=== PATIENT | male | born 1940 | race Caucasian/White ===

== ENCOUNTER 2020-10-06 13:29 | Inpatient (IN) | payer OTHER ==
[~2020-10-06] VITALS: Ht 172.7 cm; Wt 85.6 kg
[2020-10-06] MEDS ORDERED: LOPRESSOR50 MG PO (16:27)
[2020-10-06] MEDS ORDERED: CRESTOR40 MG PO (16:28)
[2020-10-06] MEDS ORDERED: TYLENOL EXTRA500 MG PO (16:30)
[2020-10-06] MEDS ORDERED: NORVASC 2.5 MG2.5 M1 PO (16:32)
[2020-10-06] MEDS ORDERED: VITAMIN C500 M2 PO (16:33)
[2020-10-06] MEDS ORDERED: VITAMIN D31250 MC1 PO (16:34)
[2020-10-06] MEDS ORDERED: VITAMIN B-121000 MC2 PO (16:35)
[2020-10-06] MEDS ORDERED: FERROUS GLUCON324 M2 PO (16:36)
[2020-10-06] MEDS ORDERED: FLONASE 0.05%50 MCG NARES (16:38)
[2020-10-06] MEDS ORDERED: CENTRUM SILVER1 EAC5 PO (16:39)
[2020-10-06] MEDS ORDERED: MUCINEX600 MG PO (16:41)
[2020-10-06] MEDS ORDERED: COMBIVENT RESPIM4 GM INH (16:43)
[2020-10-06] MEDS ORDERED: MECLIZINE HCL25 M1 PO (16:44)
[2020-10-06] MEDS ORDERED: METHOCARBAMOL750 MG PO (16:45)
[2020-10-06] MEDS ORDERED: ICY HOT CREAM35.4 GM TOP (16:47)
[2020-10-06] MEDS ORDERED: NITROSTAT0.4 M1 SUBLING (16:48)
[2020-10-06] MEDS ORDERED: POTASSIUM PO (16:50)
[2020-10-06] MEDS ORDERED: GAS-X125 M1 PO (16:51)
[2020-10-06] MEDS ORDERED: FLOMAX0.4 MG PO (16:52)
[2020-10-07 05:08] LABS: HEMOGLOBIN 8.8 gm/dL (14.0-18.0); MCH 34.9 pg (26.0-34.0); MCHC 33.8 g/dL (28.0-37.0); MCV 103.2 fL (80.0-100.0); MPV 8.5 fl. (7.2-11.1); RBC 2.52 mil/uL (4.50-6.00)
[2020-10-07 05:20] LABS: CREATININE 1.4 mg/dL (0.6-1.3); POTASSIUM 4.4 mmol/L (3.5-5.1)
[2020-10-07 05:35] LABS: WBC 1.9 thou/uL (4.0-11.0)
[2020-10-07 09:30] VITALS: BP 151/61
--- NOTE | 2020-10-07 17:50 | NUR ---
ALERT AND ORIENTED X4. UP WITH 2 ASSIST, GAIT AND WALKER DUE TO UNSTEADINESS ON FEET BECAUSE OF DIZZINESS. HAD N/V WHILE WORKING WITH THERAPY THIS AM. MEDICATION GIVEN WITH LITTLE RELIEF THIS AM. PATIENT ABLE TO KEEP NAUSEA MEDICATION DOWN THIS AFTERNOON AND PATIENT STATED HE IS FEELING BETTER. GIVEN PO PAIN MEDICATION THIS AM FOR HEADACHE. DR NOTIFIED OF LOW WBC. WILL FOLLOW NEUTOPENIC PRECAUTIONS. USES CALL LIGHT FOR ASSIST. FALL PRECAUTIONS IN PLACE. BED ALARM AND CHAIR ALARM USED.
[2020-10-07 20:00] VITALS: BP 139/49
[2020-10-08 08:00] VITALS: BP 126/45
[2020-10-08 09:47] LABS: HEMATOCRIT 26.6 % (42.0-52.0); MCH 35.4 pg (26.0-34.0); MPV 8.4 fl. (7.2-11.1); RBC 2.56 mil/uL (4.50-6.00); RDW-CV 15.9 % (10.5-14.5)
[2020-10-08 09:50] LABS: WBC 1.9 thou/uL (4.0-11.0)
--- NOTE | 2020-10-08 12:10 | NUR ---
Nutrition Pt admitted to rehab with CVA. Regular diet ordered. Wts: 186# at admit, now bed wt is 199# - PLEASE REWEIGH. Meds: vit C, B12, Fe, MVI. H/o COPD, HTN, CAD, AAA. Will follow weekly wts, labs, po intake. Neutropenic precautions. Consider mild risk at this time.
--- NOTE | 2020-10-08 16:31 | NUR ---
ASSUMMED CARE OF PT AT 0730, PT ALERT AND ORIENTED, FATIGUED, TRANSFERS WITH ASSIST OF 2, GB, REFUSES TO USE WALKER, DENIED NEED FOR ORAL PAIN MEDICATIONS THIS SHIFT, MEDICATED THIS AM FOR DIZZINESS AND NAUSEA, SMALL EMESIS AND STATED FEELING BETTER, BUT DAY PROGRESSED DID HAVE 2 LARGE EMESIS AFTER ACTIVITY WITH THERAPIES, MEDICATED AGAIN THIS PM FOR NAUSEA, WBC 1.9 CRITICAL VALUE CALLED TO DR GÓMEZ, ORDERS RECEIVED, PT VOIDS PER URINAL, NO BM THIS SHIFT, DOES TAKE SOME FOOD AND FLUIDS ENCOURAGED, PARTICIPATED IN ALL THERAPIES, HOURLY ROUNDING COMPLETED, ASSESSMENT COMPLETE, WILL CONTINUE TO MONITOR.
[2020-10-08 19:45] VITALS: BP 142/57
--- NOTE | 2020-10-08 22:57 | NUR ---
ASSUMED CARE AT 1930. PATIENT RESTING IN RECLINER UNTIL AROUND 2099. SPILLED URINAL AND CLOTHING CHANGED, TO BSC, SKIN CARE DONE. NO BM PER BSC. UP WITH TWO FOR SAFETY, GAIT BELT, WALKER, CUEING. TAKES PILLS WITH WATER. GIVEN MECLIZINE AT HS. NO FURTHER C/O NAUSEA. VOIDED PER URINAL. GIVEN APAP AT HS. HOURLY ROUNDS CONTINUE. BED ALARM ON. CALL LITE IN REACH.
--- NOTE | 2020-10-09 05:08 | NUR ---
SLEPT MOST OF THE NIGHT. VOIDED PER URINAL, NURSING EMPTIED. NO C/O PAIN. HOURLY ROUNDS CONTINUE. BED ALARM ON. CALL LITE IN REACH.
[2020-10-09 08:00] VITALS: BP 117/52
--- NOTE | 2020-10-09 15:39 | NUR ---
ASSUMMED CARE OF PT AT 0730, PT ALERT AND ORIENTED, PT TRANSFERS WITH ASSIST OF 1-2 DUE TO DIZZINESS. TAKING FOOD AND FLUIDS WELL AND HAS NO NAUSEA UNTIL HE MOVES AND THEN DEVELOPS SUDDEN NAUSEA AND HAS EMESIS, MEDICATED WITH MECLIZINE AND ZOFRAN PER ORDER, MEDICATED FOR HEADACHE PER ORDER, PT HAS NOT HAD BM FOR SEVERAL DAYS, MILK OF MAGNESIA GIVEN, PARTICIPATED IN ALL THERAPIES, HOURLY ROUNDING COMPLETED, ASSESSMENT COMPLETE, WILL CONTINUE TO MONITOR.
[2020-10-09 19:55] VITALS: BP 153/57
[2020-10-10 09:00] VITALS: BP 130/52
--- NOTE | 2020-10-10 16:00 | NUR ---
INITIAL ASSESSMENT: PATIENT ADMITTED TO THE ACUTE IN REHAB UNIT ON 10/06/20 WITH A DIAGNOSIS OF CVA. PT ALERT AND ORIENTED. PT INDEPENDENT WITH ADL'S PRIOR TO ADMIT, ACTIVE AND ABLE TO DRIVE. PT RESIDES AT HOME WITH SPOUSE. PT OWNS 0 DME. PT HAS 0 HX OF HH OR SNF. CM ORIENTED PT TO THE REHAB UNIT AND PROCESSES, TEAM CONFRENCE MEETING, RESIDENT'S RIGHTS INFO, AND TO THE ROLE OF CM. CM WILL REMAIN AVAILABLE TO ASSIST AND FOLLOW NEEDED.
--- NOTE | 2020-10-10 16:55 | NUR ---
UP WITH 1 ASSIST, GAIT BELT AND WALKER THIS AM. UNSTEADY AND DIZZY WHEN UP ON FEET. MEDICATION GIVEN FOR C/O N/V. THIS AM WITH ONLY SOME RELIEF. TALKED WITH MEDICAL DR ABOUT CT SCAN REPORT FROM 10/07. PATIENT PLACED ON BEDREST UNTIL SEEM BY NEUROLOGIST. NEUROLOGIST CONSULTED AND HERE TO SEE PATIENT. NEW ORDERS NOTED. CONTINENT OF BOWEL AND BLADDER. ALERT AND ORIENTED X4. USES CALL LIGHT FOR ASSIST. FALL PRECAUTIONS IN PLACE, BED ALARM AND CHAIR ALARM USED.
[2020-10-10 20:00] VITALS: BP 147/45
[2020-10-11 09:30] VITALS: BP 140/53
--- NOTE | 2020-10-11 17:19 | NUR ---
ALERT AND ORIENTED X4. ON BEDREST TODAY UNTIL CT SCAN DONE. CT RESULTS CALLED TO NEUROLOGIST. PATIENT ABLE TO BE OFF BEDREST AND RESUME THERAPIES IN AM. NO C/O PAIN, NAUSEA OR DIZZINESS TODAY. UP TO BEDSIDE COMMODE WITH 1 ASSIST, GAIT BELT AND WALKER. USES CALL LIGHT FOR ASSIST. FALL PRECAUTIONS IN PLACE.
[2020-10-11 20:00] VITALS: BP 112/50
--- NOTE | 2020-10-12 07:00 | NUR ---
ASSUMED PT CARE AT 1930. ASSESSMENT COMPLETED CHARTED. ABLE TO MAKE NEEDS KNOWN. UP WITH 1 ASSIST TO BATHROOM BUT DID NOT GET UP, JUST USED URINAL NEEDED. RESTING IN BED THROUGHOUT THE NIGHT. C/O HEADACHE AND GAVE PRN PAIN MEDICATION. WILL CONTINUE TO MONITOR.
[2020-10-12 09:30] VITALS: BP 138/49
--- NOTE | 2020-10-12 16:12 | NUR ---
ALERT AND ORIENTED X4. UP WITH 1 ASSIST, GAIT BELT AND WALKER. HEADACHE, NAUSEA AND DIZZINESS PATIENT STATED IS DOING BETTER. DENIED NEED FOR PAIN MEDICATION. DR AND WOUND NURSE NOTIFIED ABOUT LESION ON LEFT BUTTOCK. CONTINENT OF BOWEL AND BLADDER. USES CALL LIGHT. FALL PRECAUTIONS IN PLACE. BED ALARM AND CHAIR ALARM USED.
[2020-10-12 19:00] VITALS: BP 148/46
--- NOTE | 2020-10-13 00:28 | NUR ---
ASSUMED CARE AT 1930. PATIENT RESTING IN BED WATCHING FOOTBALL GAME ON TV. TAKES PILLS WHOLE WITH WATER. TURNS SELF. VOIDS PER URINAL AT [facility]. NO C/O HEADACHE OR DIZZINESS. SCOPOLOMINE PATCH REMAINS TO EAR. HOURLY ROUNDS CONTINUE. BED ALARM ON. CALL LITE IN REACH.
--- NOTE | 2020-10-13 05:31 | NUR ---
SLEPT MOST OF THE NIGHT. VOIDS PER URINAL. TURNS SELF. NO C/O PAIN. HOURLY ROUNDS CONTINUE. BED ALARM ON. CALL LITE IN REACH.
[2020-10-13 08:00] VITALS: BP 151/51
--- NOTE | 2020-10-13 15:47 | NUR ---
PT AND , LUCILLE DENIES HAVING ANY QUESTIONS FOR TEAM MEET'G. LUCILLE STATED SHE WILL"PROB BE THERE TOMORROW."
--- NOTE | 2020-10-13 18:40 | NUR ---
AM ASSESSMENT AND VITAL SIGNS COMPLETED DOCUMENTED. PT HAD INTERMITTENT NAUSEA AND VOMITING TODAY WHICH LIMITED HIS ABILITY TO PARTICIPATE WITH THERAPIES. CT OF ABD AND PELVIS DONE, NO ACUTE FINDINGS. FALL PRECAUTIONS AND HOURLY ROUNDING CONTINUE.
[2020-10-13 19:00] VITALS: BP 161/68
--- NOTE | 2020-10-13 20:05 | NUR ---
IN BED WATCHING TV. DENIES DISCOMFORT. CALL LIGHT WITHIN REACH. IN GOOD SPIRITS.
--- NOTE | 2020-10-14 05:24 | NUR ---
RESTED QUIETLY. USED URINAL X ONE DURING THE NIGHT. HOURLY ROUNDING IN PROGRESS.
[2020-10-14 08:52] VITALS: BP 104/48
[2020-10-14 13:09] LABS: ALBUMIN 3.7 g/dL (3.4-5.0); CALCIUM 9.6 mg/dL (8.5-10.1); CREATININE 1.5 mg/dL (0.6-1.3); POTASSIUM 4.4 mmol/L (3.5-5.1); TOTAL BILIRUBIN 0.8 mg/dL (<0.1-1.0); TOTAL PROTEIN 7.2 g/dL (6.4-8.2)
--- NOTE | 2020-10-14 16:08 | NUR ---
PT WITH N/V. PRN ZOFRAN GIVEN. WORKED WITH THERAPIES. UP WITH STB ASSIST, GAIT BELT, AND WALKER. DENIES PAIN.
--- NOTE | 2020-10-14 17:27 | NUR ---
TEAM CONFRENCE MEETING HELD TODAY. PT AND SPOUSE INFORMED OF MEETING AND PLAN TO RE-TEAM PT AND HAVE THE PT REMAIN ON THE UNIT FOR ANOTHER WEEK. PT AND SPOUSE IN AGREEMENT WITH PLAN. CM WILL REMAIN AVAILABLE TO ASSIST AND FOLLOW NEEDED.
[2020-10-14 19:00] VITALS: BP 135/52
--- NOTE | 2020-10-14 20:20 | NUR ---
AWAKENED FOR REASSESSMENT AND MEDICATION PASS. DENIES DISCOMFORT. VOIDED YEFRI URINE PER URINAL. CALL LIGHT WITHIN REACH.
--- NOTE | 2020-10-15 05:31 | NUR ---
RESTED QUIETLY. USED URINAL DURING THE NIGHT. HOURLY ROUNDING IN PROGRESS.
[2020-10-15 05:50] LABS: CALCIUM 8.9 mg/dL (8.5-10.1); CREATININE 1.4 mg/dL (0.6-1.3); POTASSIUM 4.5 mmol/L (3.5-5.1)
[2020-10-15 10:04] VITALS: BP 129/52
--- NOTE | 2020-10-15 20:00 | NUR ---
RESTING IN BED AND TALKING ON THE PHONE. DENIES DISCOMFORT. TWO URINALS AND CALL LIGHT WITHIN REACH.
[2020-10-15 20:16] VITALS: BP 125/56
--- NOTE | 2020-10-16 05:02 | NUR ---
RESTED QUIETLY. USED URINAL DURING THE NIGHT. HOURLY ROUNDING IN PROGRESS.
[2020-10-16 09:12] VITALS: BP 123/42
[2020-10-16 12:25] LABS: HEMATOCRIT 30.9 % (42.0-52.0); HEMOGLOBIN 10.3 gm/dL (14.0-18.0); MCH 34.8 pg (26.0-34.0); MCHC 33.5 g/dL (28.0-37.0); MCV 104.1 fL (80.0-100.0); MPV 8.5 fl. (7.2-11.1); RBC 2.97 mil/uL (4.50-6.00); RDW-CV 15.6 % (10.5-14.5); WBC 2.4 thou/uL (4.0-11.0)
[2020-10-16 12:35] LABS: CALCIUM 9.2 mg/dL (8.5-10.1); CREATININE 1.7 mg/dL (0.6-1.3); POTASSIUM 4.6 mmol/L (3.5-5.1)
--- NOTE | 2020-10-16 17:01 | NUR ---
ALERT AND ORIENTED X4. HAD N/V THIS AM. NEW ORDER NOTED FOR INCREASE MEDICATION FOR NAUSEA. PAIN MEDICATION GIVEN FOR HEADACHE WITH SOME RELIEF. CONTINENT OF BOWEL AND BLADDER. USES CALL LIGHT FOR ASSIST. FALL PRECAUTIONS IN PLACE. BED ALARM AND CHAIR ALARM USED.
[2020-10-16 20:00] VITALS: BP 130/44
[2020-10-17 04:54] LABS: CALCIUM 9.2 mg/dL (8.5-10.1); CREATININE 1.7 mg/dL (0.6-1.3); POTASSIUM 4.8 mmol/L (3.5-5.1)
--- NOTE | 2020-10-17 06:51 | NUR ---
ASSUMED PT CARE AT 1930. ASSESSMENT COMPLETED CHARTED. ABLE TO MAKE NEED KNOWN. NO C/O PAIN OR DISCOMFORT. RESTING IN BED MOST OF THE NIGHT. SLIGHT C/O NAUSEA. WILL CONTINUE TO MONITOR.
[2020-10-17 07:30] VITALS: BP 125/52
--- NOTE | 2020-10-17 19:40 | NUR ---
AWAKENED FOR REASSESSMENT. CALL LIGHT WITHIN REACH. VOIDS YEFRI URINE PER URINAL. TWO URINALS WITHIN REACH. DENIES DISCOMFORT.
[2020-10-17 19:52] VITALS: BP 127/43
[2020-10-18 04:59] LABS: HEMATOCRIT 28.9 % (42.0-52.0); MCH 35.3 pg (26.0-34.0); MCHC 34.6 g/dL (28.0-37.0); MCV 101.9 fL (80.0-100.0); MPV 8.6 fl. (7.2-11.1); RBC 2.84 mil/uL (4.50-6.00); RDW-CV 15.4 % (10.5-14.5); WBC 2.8 thou/uL (4.0-11.0)
[2020-10-18 05:17] LABS: ALBUMIN 3.3 g/dL (3.4-5.0); CREATININE 1.6 mg/dL (0.6-1.3); MAGNESIUM 1.8 mg/dL (1.8-2.4); POTASSIUM 4.3 mmol/L (3.5-5.1); TOTAL BILIRUBIN 0.6 mg/dL (<0.1-1.0); TOTAL PROTEIN 6.8 g/dL (6.4-8.2)
--- NOTE | 2020-10-18 05:25 | NUR ---
RESTED QUIETLY. USED URINAL DURING THE NIGHT. NO NAUSEA/VOMITING. HOURLY ROUNDING IN PROGRESS.
[2020-10-18 08:00] VITALS: BP 98/55
--- NOTE | 2020-10-18 17:12 | NUR ---
ASSUMMED CARE OF PT AT 0730, PT ALERT AND ORIENTED, TRANSFERS WITH ASSIST OF 1, GB WALKER, C/O DIZZINESS, MEDICATED X 1 WITH MECLIZINE, PT HAD ANUSEA/EMESIS X 3 AFTER WORKING WITH THERAPIES, ZOPAMELA GIVNE PER ORDER, TAKING FOOD AND FLUIDS WELL,VOIDS PER URINAL, BP LOW THIS AM, METROPOLOL HELD, INFORMED PHYSICIAN, DENIES HEADACHE THIS SHIFT, PARTICIPATED IN ALL THERAPIES, HOURLY ROUNDING COMPLETED, ASSESSMENT COMPLETE, WILL CONTINUE TO MONITOR.
--- NOTE | 2020-10-18 20:05 | NUR ---
PATIENT HAD A SMALL BM ON THE TOILET BUT FELT LIKE HE NEEDED TO HAVE MORE. ACCEPTED OFFER OF A PRN COLACE. AMBULATES WITH STANDBY, GAITBELT, WALKER. DENIES PAIN. TWO URINALS WITHIN REACH. CALL LIGHT WITHIN REACH.
[2020-10-18 20:19] VITALS: BP 127/51
[2020-10-19 05:25] LABS: CALCIUM 9.7 mg/dL (8.5-10.1); CREATININE 1.7 mg/dL (0.6-1.3); POTASSIUM 4.4 mmol/L (3.5-5.1)
--- NOTE | 2020-10-19 05:38 | NUR ---
RESTED QUIETLY WITH 02 NASAL CANNULA AT TWO LITERS. PATIENT OXYGEN SATURATION HAS BEEN DROPPING AT NIGHT TO 85-87% WITHOUT THE OXYGEN. USED URINAL DURING THE NIGHT X 2. HOURLY ROUNDING IN PROGRESS.
[2020-10-19 08:00] VITALS: BP 122/45
--- NOTE | 2020-10-19 16:25 | NUR ---
ASSUMMED CARE OF PT AT 0730, PT ALERT AND ORIENTED, PT TRANSFERS WITH ASSIST OF 1, GB WALKER FROM BED TO CHAIR, PT C./O NAUSEA AND HAD EMESIS X3 THIS SHIFT, TO HAVE UGI, AND SBFT IN AM AT 0830, PT NEEDS TO BE NPO AFTER MIDNIGHT, PT AND INSTRUCTED ON PROCEDURE, O2 REMOVED AT BREAKFAST, O2 SAT 94% ON RA, PT C/O HEADACHE THIS AM, MEDICATED PER ORDER, PARTICIPATED IN ALL THERAPIES, HOURLY ROUNDING COMPLETED, WILL CONTINUE TO MONITOR.
[2020-10-19 19:00] VITALS: BP 137/47
--- NOTE | 2020-10-19 20:35 | NUR ---
RESTING QUIETLY IN BED AND LAYING ON HIS SIDE. JUST HAD HIS BREATHING TREATMENT. EARLIER WAS SITTING UP ON SIDE OF THE BED VOMITING PARTIALLY DIGESTED FOOD. PLACED OXYGEN NASAL CANNULA AT TWO LITERS. PATIENT DESATS AT NIGHT. TWO URINALS WITHIN REACH. CALL LIGHT WITHIN REACH.
--- NOTE | 2020-10-20 05:09 | NUR ---
RESTED QUIETLY. USED URINAL DURING THE NIGHT. NPO FOR UGI AND SBFT TODAY. PATIENT IS TO BE DISCHARGED FROM REHAB BEFORE LEAVING FOR PROCEDURE. NO MORE EPISODES OF VOMITING. HOURLY ROUNDING IN PROGRESS.
[2020-10-20 09:00] VITALS: BP 107/39
--- NOTE | 2020-10-20 14:21 | CON ---
[address] [address] CONSULTATION Name: CHEIKH MONAE Room: [address] ADM IN M.R.#: [id number] Admission: 10/06/20 Attend Phys: Kahlil Ca MD Discharge: Date of : 36 Report #: [id number] THIS REPORT FOR: //name// cc: FAM - Family physician unknown FAM - Family physician unknown ~ DATE OF SERVICE: 10/15/2020 HISTORY OF PRESENT ILLNESS: This is a pleasant 80-year-old gentleman with past medical history significant for hypertension, hyperlipidemia, coronary artery disease, COPD, peripheral vascular disease and myelodysplastic syndrome, who presented to outside hospital on 09/30/2020 with dizziness and headache. The patient was noted to have small intracerebellar hemorrhage and was transferred to for Neurosurgery. Conservative management was recommended and since he had stable hemorrhage, the patient has been transferred here. The GI service has now been consulted for management of his nausea. The patient reports dizziness and vertigo since the hemorrhage. The patient reports significant nausea every day. Denies any vomiting, denies any hematemesis or hematochezia. PAST MEDICAL HISTORY: As mentioned above, he has history of hypertension, hyperlipidemia, coronary artery disease, peripheral vascular disease, abdominal aortic aneurysm and myelodysplastic syndrome. PAST SURGICAL HISTORY: The patient has an aortobiiliac stent placed. PHYSICAL EXAMINATION: VITAL SIGNS: Temperature 36.7, pulse rate 76, respirations 17, blood pressure 129/52, pulse ox 91%. GENERAL: The patient is alert, awake, oriented x 3. HEENT: Mucous membranes are moist. There is no congestion. LUNGS: Clear to auscultation bilaterally. ABDOMEN: Soft, tympanic. Bowel sounds are present. No guarding or rigidity. EXTREMITIES: Warm, well perfused. LABORATORY DATA: Hemoglobin 9.0, hematocrit 26.6, platelet count 203, WBC count 1.9. Sodium 137, potassium 4.5, chloride 104, bicarbonate 26, BUN 31, creatinine 1.4. CT abdomen and pelvis does not show any evidence of bowel obstruction. ASSESSMENT AND PLAN: Pleasant 80-year-old gentleman with history of cerebrovascular accident with intracerebellar hemorrhage, was presenting for evaluation of nausea. I suspect his nausea is related to his intracerebellar [place] [address] CONSULTATION Name: CHEIKH MONAE Room: [address] IN [facility].#: [id number] Admission: 10/06/20 Attend Phys: Kahlil Ca MD Discharge: Date of : 38 Report #: [id number] evidence of bowel obstruction. The patient reports significant improvement in his nausea since the morning. I would continue current regimen. If his nausea worsens, we can escalate Zofran to 8 mg every 8 hours. Thank you for this consultation. <ELECTRONICALLY SIGNED> By: Jarvis Fontana MD 10/20/20 1421 1139 [id number] cata Garcia
[2020-10-20] MEDS ORDERED: ZOFRAN ODT4 MG PO (14:23)
[2020-10-20] MEDS ORDERED: NEXIUM40 MG PO (14:23)
[2020-10-20] MEDS ORDERED: METOPROLOL TART25 MG PO (14:23)
--- NOTE | 2020-10-20 16:01 | NUR ---
CM SPOKE TO THE PT AND HIS SPOUSE TO DISCUSS ANY QUESTIONS OR CONCERNS THAT THEY MAY HAVE FOR TOMORROWS TEAM CONFRENCE MEETING. PT AND SPOUSE HAVE NO QUESTIONS OR CONCERNS AT THIS TIME. PLAN IS FOR PT TO D/C TO ACUTE TOMORROW TO HAVE GI PROCEDURE. CM WILL REMAIN AVAILABLE TO ASSIST AND FOLLOW NEEDED.
[2020-10-20 19:15] VITALS: BP 161/69
--- NOTE | 2020-10-20 19:51 | NUR ---
ALERT AND ORIENTED X4. UP WITH 1 ASSIST, GAIT BELT AND WALKER. PO PAIN MEDICATION GIVEN FOR HEADACHE WITH SOME RELIEF. NAUSEA MEDICATION GIVEN SCHEDULED WITH SOME RELIEF. PROCEDURE CHANGED TO 10/21 FOR UPPER GI AND SBFT. USES CALL LIGHT FOR ASSIST. FALL PRECAUTIONS IN PLACE. BED ALARM AND CHAIR ALARM USED.
--- NOTE | 2020-10-20 20:20 | NUR ---
CAME ON SHIFT AND PT WAS COMPLAINING OF CHEST PAIN RIGHT UNDER LEFT BREAST AND STATED THERE WAS A "LUMP" THERE. IMMEDIATELY GOT VITAL SIGNS, VSS EXCEPT FOR BP ELEVATED. NOTIFIED DR. EKG WAS NORMAL. DR GAVE ORDERS FOR CHEST XRAY WHICH ALSO CAME BACK NORMAL. PAIN WENT AWAY ABOUT 15 MINS AFTER FIRST SHOWING. NO NEW ORDERS GIVEN AFTER. WILL CONTINUE TO MONITOR.
[2020-10-21 01:50] VITALS: BP 161/69
[2020-10-21 05:43] LABS: HEMATOCRIT 27.1 % (42.0-52.0); HEMOGLOBIN 9.3 gm/dL (14.0-18.0); MCH 35.4 pg (26.0-34.0); MCHC 34.3 g/dL (28.0-37.0); MCV 103.2 fL (80.0-100.0); MPV 8.2 fl. (7.2-11.1); NUCLEATED RBCS 0 /100WBC; PLATELET COUNT* 89 thou/uL (150-400); RBC 2.63 mil/uL (4.50-6.00); RDW-CV 15.7 % (10.5-14.5); WBC 2.3 thou/uL (4.0-11.0)
[2020-10-21 05:50] LABS: CALCIUM 9.3 mg/dL (8.5-10.1); CREATININE 1.5 mg/dL (0.6-1.3); POTASSIUM 4.1 mmol/L (3.5-5.1)
--- NOTE | 2020-10-21 06:08 | NUR ---
ASSUMED PT CARE AT 1930. ASSESSMENT COMPLETED CHARTED. ABLE TO MAKE NEEDS KNOWN. NPO SINCE MIDNIGHT. RESTING IN BED COMFORTABLY. CHECKED O2 WHILE SLEEPING AND WAS OVER 94%. C/O SLIGHT HEADACHE BUT REFUSED PAIN MEDICATIONS. UP WITH 1 ASSIST TO BATHROOM OR USES URINAL. WILL CONTINUE TO MONITOR.
[2020-10-21 06:32] LABS: ABSOLUTE LYMPHOCYTES 0.7 thou/uL (0.8-5.3); ABSOLUTE MONOCYTES 0.5 thou/uL (0.0-1.2); ABSOLUTE NEUTROPHILS 1.1 thou/uL (1.6-8.1); ATYPICAL LYMPHS 5 %; METAMYELOCYTES 1 %; PLATELET ESTIMATE DECREASED
[2020-10-21 08:00] VITALS: BP 123/62
--- NOTE | 2020-10-21 09:27 | NUR ---
PATIENT GOING FOR UP GI AND SBFT THIS AM. DISCHARGED TO ROOM 311 THIS AM. REPORT GIVEN TO NURSE. SHE WAS NOTIFIED OF MOST RECENT ABNORMAL LABS, V/S, AND RECENT ASSESSMENT. V/S STABLE PATIENT IN NO ACUTE DISTRESS.
--- NOTE | 2020-10-21 13:08 | EKG ---
[facility] [address] [place] [address] ELECTROCARDIOGRAM REPORT Name: CHEIKH MOANE Room: [address] DIS IN [facility]#: [id number] Admission: 10/06/20 Attend Phys: Kahlil Ca MD Discharge: 10/21/20 Date of : 36 Date of Service: 10/20/201923 Report #: [id number] THIS REPORT FOR: //name// [facility] Test Date: 2020-10-20 Test Time: 19:24:25 Pat Name: CHEIKH MONAE Department: Room: [address] Gender: M Merchandiser Seasonal: ASHLEE : 1940 Requested By: Kelly Santana Order Number: [id number] Duncan MD: Yony Washington Measurements Intervals [place] Rate: 64 P: -30 ID: [id number] QRS: -2 QRSD: 97 T: 15 QT: 388 QTc: 401 Interpretive Statements Sinus rhythm Left ventricular hypertrophy No previous ECG available for comparison Electronically Signed On 10-21-2020 13:07:[address] Yony Washington [email or web address] <ELECTRONICALLY SIGNED> By: Yony Washington MD, [facility] 10/21/20 1307 [id number] Yony Washington MD, [facility] /EPI
[2020-10-22] MEDS ORDERED: REGLAN 5 MG TAB5 MG PO (08:14)
[2020-10-22] MEDS ORDERED: MIRALAX17 GM PO (08:14)
[2020-10-22] MEDS ORDERED: SENNA PLUS TAB1 EACH PO (08:14)
[2020-10-22] MEDS ORDERED: CEFUROXIME250 MG PO (10:55)
== END 2020-10-21 09:30 | disposition short-term general hospital (02) | DRG 65 ==
LOC: M.REH 13:29
PROVIDERS: Internal Medicine; ADMIT Physical Medicine & Rehabilitation; ATTEND Physical Medicine & Rehabilitation
DX: I61.4 Nontraumatic intracerebral hemorrhage in cerebellum (principal); D61.818 Other pancytopenia; G43.909 Migraine, unspecified, not intractable, without status migrainosus; J44.9 Chronic obstructive pulmonary disease, unspecified; I10 Essential (primary) hypertension; N40.0 Benign prostatic hyperplasia without lower urinary tract symptoms; I73.9 Peripheral vascular disease, unspecified; E78.5 Hyperlipidemia, unspecified; G89.29 Other chronic pain; D46.9 Myelodysplastic syndrome, unspecified; I25.10 Atherosclerotic heart disease of native coronary artery without angina pectoris; F43.10 Post-traumatic stress disorder, unspecified; R27.0 Ataxia, unspecified; I95.9 Hypotension, unspecified; Z88.6 Allergy status to analgesic agent; Z88.8 Allergy status to other drugs, medicaments and biological substances

== ENCOUNTER 2020-10-21 10:00 | Observation (INO) | payer OTHER ==
[~2020-10-21] VITALS: Ht 172.7 cm; Wt 84.8 kg
[~2020-10-21 10:00] MED LIST: CENTRUM SILVER1 EAC5 PO; COMBIVENT RESPIM4 GM INH; CRESTOR40 MG PO; FERROUS GLUCON324 M2 PO; FLOMAX0.4 MG PO; FLONASE 0.05%50 MCG NARES; GAS-X125 M1 PO; ICY HOT CREAM35.4 GM TOP; LOPRESSOR50 MG PO; MECLIZINE HCL25 M1 PO; METHOCARBAMOL750 MG PO; METOPROLOL TART25 MG PO; MUCINEX600 MG PO; NEXIUM40 MG PO; NITROSTAT0.4 M1 SUBLING; NORVASC 2.5 MG2.5 M1 PO; POTASSIUM PO; TYLENOL EXTRA500 MG PO; VITAMIN B-121000 MC2 PO; VITAMIN C500 M2 PO; VITAMIN D31250 MC1 PO; ZOFRAN ODT4 MG PO
[2020-10-21 11:27] VITALS: BP 130/55
--- NOTE | 2020-10-21 14:21 | NUR ---
CM INFORMED BY IN ACUTE HELPER COORDINATOR OF DECISION TO ACCEPT PT BACK TO IN REHAB WHEN MEDICALLY STABLE AFTER COMPLETION OF SCHEDULED GI PROCEDURES, AN INTERRUPTED STAY PT. CM WILL REMAIN AVAILABLE TO ASISST AND FOLLOW NEEDED.
[2020-10-21 16:44] VITALS: BP 142/54
--- NOTE | 2020-10-21 18:36 | NUR ---
A&OX 4. HAS BAD PTSD. REQUEST THAT WE TOUCH HIS TOE TO WAKE HIM. NO IV ACCESS. DONE WITH SB FOLLOW THROUGH TONIGHT AND PT CURRENTLY EATING REGULAR DIET. WILL GO BACK TOMORROW FOR ANOTHER FILM. NO C/O PAIN. CALL LIGHT WITHIN REACH. WILL CONTINUE TO MONITOR.
[2020-10-21 20:23] VITALS: BP 130/92
--- NOTE | 2020-10-22 05:32 | NUR ---
PT ALERT AND ORIENTED. ROOM AIR. HAD SOME CONSTIPATION NO BM SINCE MONDAY. VERY UNCOMFORTABLE. GIVEN COLACE, DULCOLAX SUPP, ENEMA, HAD BM FELT MUCH BETTER. WAS ABLE TO SLEEP REMAINDER OF NIGHT. HE DID HAVE SOME SLIGHT NAUSEA TWICE. RECEIVED ALL MEDS ORDERED. WAS FEELING MUCH BETTER.
[2020-10-22 07:30] VITALS: BP 136/47
[2020-10-22] MEDS ORDERED: REGLAN 5 MG TAB5 MG PO (08:14)
[2020-10-22] MEDS ORDERED: MIRALAX17 GM PO (08:14)
[2020-10-22] MEDS ORDERED: SENNA PLUS TAB1 EACH PO (08:14)
[2020-10-22 09:05] VITALS: BP 136/47
[2020-10-22 09:28] LABS: URINE BILIRUBIN NEGATIVE (Negative); URINE BLOOD 2+ (Negative); URINE CLARITY SL CLOUDY; URINE COLOR YELLOW; URINE GLUCOSE-RANDOM NEGATIVE (Negative); URINE KETONES NEGATIVE (Negative); URINE LEUKOCYTES 2+ (Negative); URINE NITRITE POSITIVE (Negative); URINE PROTEIN 1+ (Negative); URINE UROBILINOGEN 0.2 E.U./dl (0.2-1.0)
[2020-10-22 09:35] LABS: SQUAMOUS 0-3 Few /LPF (0-3)
[2020-10-22 09:36] LABS: BACTERIA >30 Many /HPF (None Seen); URINE WBC >25 Many /HPF (0-5); WBC CLUMPS Few (None Seen)
[2020-10-22 09:37] LABS: CASTS None Seen /LPF (None Seen); CRYSTALS None Seen /LPF (None Seen); MUCUS 4-6 Moderate strn/LPF (None Seen)
[2020-10-22] MEDS ORDERED: CEFUROXIME250 MG PO (10:55)
--- NOTE | 2020-10-22 13:46 | NUR ---
PT.TO RETURN BACK TO REHAB UNIT TODAY. WAS IN [place] AND INFORMED HER. TOLD HER I WOULD LET HER KNOW TIME WHEN I FOUND OUT.
--- NOTE | 2020-10-22 14:17 | NUR ---
DISCHARGED TO REHAB [facility]. REPORT CALLED TO REMY WHITE. DISCHARGED VIA W/C AND NURSING STAFF.
== END 2020-10-22 14:10 | disposition short-term general hospital (02) ==
LOC: M.3W 10:00
PROVIDERS: ADMIT Internal Medicine; ATTEND Internal Medicine
DX: I61.4 Nontraumatic intracerebral hemorrhage in cerebellum (principal); G43.909 Migraine, unspecified, not intractable, without status migrainosus; D46.9 Myelodysplastic syndrome, unspecified; J44.9 Chronic obstructive pulmonary disease, unspecified; I10 Essential (primary) hypertension; E78.5 Hyperlipidemia, unspecified; D61.818 Other pancytopenia; N40.0 Benign prostatic hyperplasia without lower urinary tract symptoms; I95.9 Hypotension, unspecified; K59.00 Constipation, unspecified; R11.2 Nausea with vomiting, unspecified; L98.9 Disorder of the skin and subcutaneous tissue, unspecified; Z79.899 Other long term (current) drug therapy

== ENCOUNTER 2020-10-22 12:00 | Inpatient (IN) | payer OTHER ==
[~2020-10-22] VITALS: Ht 172.7 cm; Wt 86.8 kg
[~2020-10-22 12:00] MED LIST changes: +CEFUROXIME250 MG PO; +MIRALAX17 GM PO; +REGLAN 5 MG TAB5 MG PO; +SENNA PLUS TAB1 EACH PO
[2020-10-22 19:30] VITALS: BP 102/40
[2020-10-23 04:41] LABS: ABSOLUTE LYMPHOCYTES 0.8 thou/uL (0.8-5.3); ABSOLUTE MONOCYTES 0.5 thou/uL (0.0-1.2); ABSOLUTE NEUTROPHILS 0.8 thou/uL (1.6-8.1); BASOPHILS 0.4 %; EOSINOPHILS 1.1 %; HEMATOCRIT 25.7 % (42.0-52.0); LYMPHOCYTES 37.6 %; MCH 35.2 pg (26.0-34.0); MCV 100.7 fL (80.0-100.0); MONOCYTES 22.8 %; MPV 8.6 fl. (7.2-11.1); NUCLEATED RBCS 0 /100WBC; PLATELET COUNT* 93 thou/uL (150-400); POLYS 38.1 %; RBC 2.55 mil/uL (4.50-6.00); RDW-CV 14.7 % (10.5-14.5); WBC 2.2 thou/uL (4.0-11.0)
[2020-10-23 04:55] LABS: CALCIUM 9.1 mg/dL (8.5-10.1); CREATININE 1.6 mg/dL (0.6-1.3); POTASSIUM 3.8 mmol/L (3.5-5.1)
[2020-10-23 08:30] VITALS: BP 128/56
[2020-10-23 20:00] VITALS: BP 132/47
[2020-10-24 08:00] VITALS: BP 130/66
[2020-10-24 20:30] VITALS: BP 155/68
[2020-10-24 23:41] VITALS: BP 137/46
[2020-10-25 07:30] VITALS: BP 131/57
[2020-10-25 20:00] VITALS: BP 138/52
[2020-10-25 23:12] LABS: URINE BILIRUBIN NEGATIVE (Negative); URINE BLOOD 3+ (Negative); URINE CLARITY CLEAR; URINE COLOR YELLOW; URINE GLUCOSE-RANDOM NEGATIVE (Negative); URINE KETONES NEGATIVE (Negative); URINE LEUKOCYTES-REFLEX NEGATIVE (Negative); URINE NITRITE-REFLEX NEGATIVE (Negative); URINE PROTEIN 1+ (Negative); URINE SPECIFIC GRAVITY 1.025 (1.005-1.030); URINE UROBILINOGEN 0.2 E.U./dl (0.2-1.0)
[2020-10-26 00:39] LABS: CASTS None Seen /LPF (None Seen); MUCUS 0-3 Light strn/LPF (None Seen); SQUAMOUS 4-10 Moderate /LPF (0-3); URINE WBC-REFLEX 0-5 Rare /HPF (0-5)
[2020-10-26 00:40] LABS: BACTERIA-REFLEX 1-9 Few /HPF (None Seen); CRYSTALS None Seen /LPF (None Seen)
[2020-10-26 05:00] LABS: HEMATOCRIT 27.5 % (42.0-52.0); HEMOGLOBIN 9.6 gm/dL (14.0-18.0); MCH 35.1 pg (26.0-34.0); MCHC 34.8 g/dL (28.0-37.0); MCV 100.9 fL (80.0-100.0); MPV 8.4 fl. (7.2-11.1); RBC 2.73 mil/uL (4.50-6.00); RDW-CV 14.7 % (10.5-14.5)
[2020-10-26 05:22] LABS: WBC 1.3 thou/uL (4.0-11.0)
[2020-10-26 05:27] LABS: CALCIUM 9.5 mg/dL (8.5-10.1); CREATININE 1.4 mg/dL (0.6-1.3); MAGNESIUM 1.9 mg/dL (1.8-2.4); POTASSIUM 4.4 mmol/L (3.5-5.1)
[2020-10-26 09:00] VITALS: BP 135/72
[2020-10-26 20:00] VITALS: BP 133/55
[2020-10-27 08:13] VITALS: BP 131/39
[2020-10-27 20:00] VITALS: BP 123/65
[2020-10-28 05:15] LABS: HEMATOCRIT 28.4 % (42.0-52.0); HEMOGLOBIN 9.8 gm/dL (14.0-18.0); MCH 35.4 pg (26.0-34.0); MCHC 34.3 g/dL (28.0-37.0); MCV 103.1 fL (80.0-100.0); MPV 8.9 fl. (7.2-11.1); RBC 2.76 mil/uL (4.50-6.00); RDW-CV 15.1 % (10.5-14.5); WBC 3.9 thou/uL (4.0-11.0)
[2020-10-28 05:35] LABS: CREATININE 1.4 mg/dL (0.6-1.3); POTASSIUM 4.6 mmol/L (3.5-5.1)
[2020-10-28 08:30] VITALS: BP 126/48
[2020-10-28 19:00] VITALS: BP 116/91
[2020-10-29 07:30] VITALS: BP 106/48
[2020-10-29 20:10] VITALS: BP 133/41
[2020-10-30 08:00] VITALS: BP 134/53
[2020-10-30 10:00] VITALS: BP 134/53
[2020-10-30 20:23] VITALS: BP 112/40
[2020-10-31 07:30] VITALS: BP 144/42
[2020-10-31 21:47] VITALS: BP 124/52
[2020-11-01 15:38] VITALS: BP 138/56
[2020-11-01 20:24] VITALS: BP 128/39
[2020-11-02 08:00] VITALS: BP 126/56
[2020-11-02 19:00] VITALS: BP 122/54
[2020-11-03 07:30] VITALS: BP 123/46
[2020-11-03 11:50] VITALS: BP 139/53
[2020-11-03 11:55] VITALS: BP 140/59
[2020-11-03 12:00] VITALS: BP 139/55
[2020-11-03 19:00] VITALS: BP 120/76
[2020-11-04 04:28] LABS: HEMATOCRIT 28.7 % (42.0-52.0); HEMOGLOBIN 9.8 gm/dL (14.0-18.0); MCHC 34.1 g/dL (28.0-37.0); MCV 102.9 fL (80.0-100.0); MPV 8.1 fl. (7.2-11.1); RBC 2.79 mil/uL (4.50-6.00); RDW-CV 15.5 % (10.5-14.5); WBC 2.8 thou/uL (4.0-11.0)
[2020-11-04 04:48] LABS: CALCIUM 8.5 mg/dL (8.5-10.1); CREATININE 1.4 mg/dL (0.6-1.3); POTASSIUM 4.8 mmol/L (3.5-5.1)
[2020-11-04 08:00] VITALS: BP 114/47
[2020-11-04 13:32] VITALS: BP 114/47
[2020-11-04 13:35] VITALS: BP 114/47
== END 2020-11-04 14:15 | disposition home health service (06) | DRG 56 ==
LOC: M.REH 12:00
PROVIDERS: Internal Medicine; ADMIT Physical Medicine & Rehabilitation; ATTEND Physical Medicine & Rehabilitation
DX: I69.354 Hemiplegia and hemiparesis following cerebral infarction affecting left non-dominant side (principal); I61.4 Nontraumatic intracerebral hemorrhage in cerebellum; D61.818 Other pancytopenia; G43.909 Migraine, unspecified, not intractable, without status migrainosus; J44.9 Chronic obstructive pulmonary disease, unspecified; I10 Essential (primary) hypertension; D46.9 Myelodysplastic syndrome, unspecified; N40.0 Benign prostatic hyperplasia without lower urinary tract symptoms; I95.9 Hypotension, unspecified; K59.00 Constipation, unspecified; E78.5 Hyperlipidemia, unspecified; I25.10 Atherosclerotic heart disease of native coronary artery without angina pectoris; G89.29 Other chronic pain; M54.9 Dorsalgia, unspecified; Z88.6 Allergy status to analgesic agent; Z88.8 Allergy status to other drugs, medicaments and biological substances; Z79.899 Other long term (current) drug therapy